=== PATIENT | male | born 1985 | race Native Hawaiian/Other Pacific Islander ===

== ENCOUNTER 2017-09-22 20:02 | Outpatient (CLI) | payer OTHER | END 2017-09-22 22:23 | disposition home or self-care (01) | LOC: LABW 20:02 | DX: R10.9 Unspecified abdominal pain (principal); R19.7 Diarrhea, unspecified; K59.00 Constipation, unspecified; R11.0 Nausea | CPT/HCPCS: 82272; 82705; 87015; 87045; 87205; 87324; 87338; 87449; 87899 ==

== ENCOUNTER 2017-09-28 11:58 | Outpatient (CLI) | payer OTHER | END 2017-09-28 22:12 | disposition home or self-care (01) | LOC: RAD 11:58 | DX: R10.9 Unspecified abdominal pain (principal); R19.7 Diarrhea, unspecified; K59.00 Constipation, unspecified | CPT/HCPCS: 74022 ==

== ENCOUNTER 2017-10-15 07:48 | Outpatient (CLI) | payer OTHER | END 2017-10-15 21:16 | disposition home or self-care (01) | LOC: NM 07:48 | DX: R10.84 Generalized abdominal pain (principal); R19.8 Other specified symptoms and signs involving the digestive system and abdomen; R14.0 Abdominal distension (gaseous); R19.7 Diarrhea, unspecified | CPT/HCPCS: A9541 ==

== ENCOUNTER 2018-11-30 14:54 | Outpatient (CLI) | payer OTHER | END 2018-11-30 23:59 | disposition home or self-care (01) | LOC: RAD 14:54 | DX: M79.672 Pain in left foot (principal) ==

== ENCOUNTER 2019-08-02 08:47 | Outpatient (CLI) | payer OTHER | END 2019-08-02 19:24 | disposition home or self-care (01) | LOC: MRI 08:47 | DX: M79.672 Pain in left foot (principal); M67.872 Other specified disorders of synovium, left ankle and foot ==

== ENCOUNTER 2021-08-05 08:25 | Outpatient (CLI) | payer OTHER | END 2021-08-05 18:54 | disposition home or self-care (01) | LOC: US 08:25 | PROVIDERS: ATTEND Nurse Practitioner Family | DX: R74.8 Abnormal levels of other serum enzymes (principal); E78.49 Other hyperlipidemia; R17 Unspecified jaundice; E78.1 Pure hyperglyceridemia ==

== ENCOUNTER 2021-09-16 09:21 | Outpatient (CLI) | payer OTHER ==
[2021-09-16 10:08] LABS: PLATELET COUNT 171 K/uL (142-355)
[2021-09-16 10:29] LABS: POTASSIUM 3.7 mmol/L (3.6-5.2)
== END 2021-09-16 18:58 | disposition home or self-care (01) ==
LOC: LABW 09:21
PROVIDERS: ATTEND Internal Medicine Gastroenterology
DX: R94.5 Abnormal results of liver function studies (principal)
CPT/HCPCS: 36415; 80053; 80074; 82103; 82248; 82390; 82525; 82728; 83516; 83540; 83550; 84466; 85027; 85610; 86038

== ENCOUNTER 2021-11-03 07:53 | Emergency (ER) | payer OTHER ==
[~2021-11-03] VITALS: Ht 172.7 cm; Wt 87.1 kg
[2021-11-03 08:03] VITALS: TEMP 96.7
[2021-11-03 08:38] LABS: PLATELET COUNT 176 K/uL (142-355)
[2021-11-03 08:43] LABS: POTASSIUM 3.6 mmol/L (3.6-5.2)
[2021-11-03 10:30] VITALS: BP 128/78
== END 2021-11-03 10:49 | disposition home or self-care (01) ==
LOC: ED 07:53
PROVIDERS: Hospitalist
DX: R10.84 Generalized abdominal pain (principal); R31.9 Hematuria, unspecified
CPT/HCPCS: 36415; 80053; 80307; 81002; 81015; 83690; 85027; 96360; 96365; 99284; J0696; J1885; J2405; Q9963

== ENCOUNTER 2021-11-26 08:44 | Emergency (ER) | payer OTHER ==
[~2021-11-26] VITALS: Ht 172.7 cm; Wt 87.1 kg
[2021-11-26 08:44] VITALS: TEMP 98
[2021-11-26 10:08] LABS: POTASSIUM 3.8 mmol/L (3.6-5.2)
[2021-11-26 10:12] LABS: PLATELET COUNT 168 K/uL (142-355)
[2021-11-26 11:25] VITALS: BP 110/70
== END 2021-11-26 11:34 | disposition home or self-care (01) ==
LOC: ED 08:44
PROVIDERS: Family Medicine
DX: D17.5 Benign lipomatous neoplasm of intra-abdominal organs (principal); R31.9 Hematuria, unspecified
CPT/HCPCS: 80053; 81002; 81015; 82150; 83690; 85027; 99283

== ENCOUNTER 2021-11-28 10:46 | Outpatient (CLI) | payer OTHER | END 2021-11-28 19:24 | disposition home or self-care (01) | LOC: CT 10:46 | PROVIDERS: ATTEND Nurse Practitioner Family | DX: R10.9 Unspecified abdominal pain (principal); R31.9 Hematuria, unspecified; R19.09 Other intra-abdominal and pelvic swelling, mass and lump | CPT/HCPCS: Q9963 ==

== ENCOUNTER 2021-12-30 12:25 | Outpatient (CLI) | payer OTHER | END 2021-12-30 20:10 | disposition home or self-care (01) | LOC: CT 12:25 | PROVIDERS: ATTEND Nurse Practitioner Family | DX: R31.9 Hematuria, unspecified (principal); R10.31 Right lower quadrant pain; Z87.442 Personal history of urinary calculi; Z09 Encounter for follow-up examination after completed treatment for conditions other than malignant neoplasm ==